=== PATIENT | female | born 1975 | race Caucasian/White ===

== ENCOUNTER → 2022-01-05 | Outpatient (CLI) | payer OTHER ==
[~2022-01-05] MED LIST: BENADRYL25 MG PO; TRAM50 PO
[2022-01-05 15:49] LABS: BASOPHILS ABSOLUTE AUTO 0.02 K/mm3 (0.00-0.23); BASOPHILS PERCENT AUTO 0 % (0-2); EOSINOPHILS ABSOLUTE AUTO 0.01 K/mm3 (0.00-0.68); EOSINOPHILS PERCENT AUTO 0 % (0-6); Hematocrit 19.2 % (33.0-51.0); IMMATURE GRAN ABSOLUTE AUTO 0.03 K/mm3 (0.00-0.10); IMMATURE GRAN PERCENT AUTO 0 % (0-1); LYMPHOCYTES ABSOLUTE AUTO 0.92 K/mm3 (0.84-5.20); LYMPHOCYTES PERCENT AUTO 12 % (21-46); MONOCYTES ABSOLUTE AUTO 0.48 K/mm3 (0.16-1.47); MONOCYTES PERCENT AUTO 6 % (4-13); Mean Corpuscular HGB 19.2 pg (26.0-34.0); Mean Corpuscular HGB Conc 26.6 g/dL (31.5-36.5); Mean Corpuscular Volume 72 fL (80-100); Mean Platelet Volume 8.9 fL (9.1-12.4); NEUTROPHILS ABSOLUTE AUTO 6.29 K/mm3 (1.96-9.15); NEUTROPHILS PERCENT AUTO 81 % (41-73); Platelet Count 502 K/mm3 (150-400); RDW Coefficient Variation 17.5 % (11.7-14.2); Red Blood Cell Count 2.66 M/mm3 (3.80-5.20); White Blood Cell Count 7.75 K/mm3 (4.00-11.30)
[2022-01-05 15:54] LABS: Albumin, Blood 3.5 g/dL (3.4-5.0); Bilirubin, Total 0.3 mg/dL (0.1-1.0); Bun/Creatinine Ratio 15.9 (12.0-20.0); Calcium, Blood 9.4 mg/dL (8.5-10.1); Creatinine, Blood 0.69 mg/dL (0.40-1.00); Globulin, Blood 3.5 g/dL (2.2-4.0)
[2022-01-05 16:19] LABS: Hemoglobin 5.1 g/dL (11.5-16.0)
== END | disposition home or self-care (01) ==
LOC: LAB 15:37 → LAB SHORT 15:37
PROVIDERS: Physician Assistant Surgical
DX: R10.11 Right upper quadrant pain (principal)
CPT/HCPCS: 80053; 83690; 85025

== ENCOUNTER 2024-05-30 16:41 | Observation (INO) | payer SELFPAY ==
[~2024-05-30] VITALS: Ht 177.8 cm; Wt 122.8 kg
[2024-05-30] MEDS ORDERED: NS 1,000 ML IV ONE (21:10)
[2024-05-31 00:04] LABS: Hematocrit 21.9 % (33.0-51.0)
[2024-05-31 00:49] LABS: Hematocrit 22.4 % (33.0-51.0); Hemoglobin 6.1 g/dL (11.5-16.0)
[2024-05-31 06:32] LABS: Hematocrit 23.4 % (33.0-51.0); Hemoglobin 6.7 g/dL (11.5-16.0)
[2024-05-31] MEDS ORDERED: FLU VACC TS2024-25(6MOS UP)/PF 45 MCG/0.5 ML SYRINGE IM SCH (09:10)
[2024-05-31] MEDS ORDERED: Sod Ferric Gluc Complx/Sucrose 125 MG in NS 100 ML IV SCH (09:30)
[2024-05-31] MEDS ORDERED: FAMO40 PO (11:22)
[2024-05-31 12:59] LABS: Hematocrit 28.9 % (33.0-51.0); Hemoglobin 8.1 g/dL (11.5-16.0)
[2024-05-31 15:20] VITALS: BP 147/100
--- NOTE | 2024-05-31 17:45 | NUR ---
SHIFT SUMMARY 1515 RECEIVED PT TO RM 326 VIA W/C FROM ER. PT SENT TO ER BY PCP FOR LOW Hgb. PT RECEIVED 2 UNITS PRBC'S IN ER. Hgb INCREASED TO 8.1. DR CAMP CONSULTED BY DR CARMEN. DR CAMP HERE TO SEE PT THIS AFTERNOON. PT TO HAVE UPPER AND LOWER SCOPE TOMORROW. GOLYTELY STARTED TONIGHT, PER ORDERS. PT OK TO HAVE ICE CHIPS AND WATER UNTIL 0600 AND THEN NPO. PT INFORMED AND VERBALIZED UNDERSTANDING. PT IS A&O AND VERY PLEASANT. UP INDEPENDENTLY IN RM AND TO [facility]. DENIES FURTHER NEEDS. CALL LT IN REACH.
[2024-05-31] MEDS ORDERED: Peg/Electrolytes 4,000 ML BTL PO ONE (18:00)
[2024-05-31 20:20] VITALS: BP 145/89
[2024-05-31 21:22] LABS: Stool Occult Blood Guaiac 1 Neg (Neg)
[2024-06-01] VITALS (7 sets, daily range): BP systolic 104–137; BP diastolic 70–86
--- NOTE | 2024-06-01 03:55 | NUR ---
A&0x 4. affect pleasant. Stool specimen sent to lab this shift. Hgb improved from previous s/p PRBC transfusion, Has completed Go Lytely bowel prep and stools now clear , Scheduled for Endoscopy tomorrow, Appeared to be resting well overnight . VS have remained stable. water/ice chips and bowel prep only,nothing else by mouth. pt compliant with plan of care.
[2024-06-01 06:11] LABS: BASOPHILS ABSOLUTE AUTO 0.03 K/mm3 (0.00-0.23); BASOPHILS PERCENT AUTO 1 % (0-2); EOSINOPHILS ABSOLUTE AUTO 0.13 K/mm3 (0.00-0.68); EOSINOPHILS PERCENT AUTO 2 % (0-6); Hematocrit 27.1 % (33.0-51.0); Hemoglobin 7.5 g/dL (11.5-16.0); IMMATURE GRAN ABSOLUTE AUTO 0.02 K/mm3 (0.00-0.10); IMMATURE GRAN PERCENT AUTO 0 % (0-1); LYMPHOCYTES ABSOLUTE AUTO 1.31 K/mm3 (0.84-5.20); LYMPHOCYTES PERCENT AUTO 22 % (21-46); MONOCYTES ABSOLUTE AUTO 0.59 K/mm3 (0.16-1.47); MONOCYTES PERCENT AUTO 10 % (4-13); Mean Corpuscular HGB 20.7 pg (26.0-34.0); Mean Corpuscular HGB Conc 27.7 g/dL (31.5-36.5); Mean Corpuscular Volume 75 fL (80-100); Mean Platelet Volume 8.7 fL (9.1-12.4); NEUTROPHILS ABSOLUTE AUTO 3.91 K/mm3 (1.96-9.15); NEUTROPHILS PERCENT AUTO 65 % (41-73); Platelet Count 408 K/mm3 (150-400); RDW Coefficient Variation 22.4 % (11.7-14.2); RDW Standard Deviation 59.8 fL (35.1-46.3); Red Blood Cell Count 3.62 M/mm3 (3.80-5.20); White Blood Cell Count 5.99 K/mm3 (4.00-11.30)
[2024-06-01 06:29] LABS: Calcium, Blood 8.1 mg/dL (8.5-10.1); Creatinine, Blood 0.6 mg/dL (0.40-1.00); Potassium, Blood 3.6 mmol/L (3.5-5.5)
[2024-06-01] MEDS ORDERED: propofoL 60 ML IV ONE (07:22)
[2024-06-01] MEDS ORDERED: Lactated Ringer's 1,000 ML IV SCH (07:40)
--- NOTE | 2024-06-01 08:37 | NUR ---
06/01/24 0837 Dayan Anthony MAC WITH [facility]; SEE ANESTHESIA RECORDS.
[2024-06-01] MEDS ORDERED: propofoL 40 ML IV ONE (08:39)
[2024-06-01] MEDS ORDERED: Famotidine 20 MG Tab PO SCH ×2 (09:00→21:00)
[2024-06-01] MEDS ORDERED: NS 250 ML IV PRN (09:55)
--- NOTE | 2024-06-01 11:59 | NUR ---
DISCHARGE PT AOX4, COOPERATIVE, ABLE TO MAKE NEEDS KNOWN. PT FINISHED IRON INFUSION, IV DC'D BY YANA. THIS RN WENT OVER DC PAPERWORK WITH PT, PT ACKNOWLEDGED. PT AMBULATED OUT OF HOSPITAL WITH INJURY.
== END 2024-06-01 11:58 | disposition home or self-care (01) ==
LOC: ER 16:41 → ERHOLD 16:42 → MEDS 16:42
PROVIDERS: Internal Medicine Gastroenterology; Student in an Organized Health Care Education/Training Program; ADMIT Family Medicine
PROC: 0DB68ZX Excision of Stomach, Via Natural or Artificial Opening Endoscopic, Diagnostic (ICD-10-PCS; principal; 2024-06-01 09:00)
PROC: 0DB98ZX Excision of Duodenum, Via Natural or Artificial Opening Endoscopic, Diagnostic (ICD-10-PCS; principal; 2024-06-01 09:00)
PROC: 0DBL8ZX Excision of Transverse Colon, Via Natural or Artificial Opening Endoscopic, Diagnostic (ICD-10-PCS; principal; 2024-06-01 09:00)
DX: D50.9 Iron deficiency anemia, unspecified (principal); K21.00 Gastro-esophageal reflux disease with esophagitis, without bleeding; D12.3 Benign neoplasm of transverse colon; K25.9 Gastric ulcer, unspecified as acute or chronic, without hemorrhage or perforation; K44.9 Diaphragmatic hernia without obstruction or gangrene; Q43.8 Other specified congenital malformations of intestine; D75.838 Other thrombocytosis; Z79.899 Other long term (current) drug therapy; Z97.5 Presence of (intrauterine) contraceptive device
CPT/HCPCS: 36415; 36430; 80048; 82272; 85014; 85018; 85025; 86850; 86900; 86901; 86923; 88305; 88342; 96365; 96366; 99285-25; A9270; G0378; J2704; J2916; J7030; J7050; J7120; P9016

== ENCOUNTER 2024-06-10 01:32 | Day surgery (SDC) | payer SELFPAY ==
[~2024-06-10 01:32] MED LIST changes: +FAMO40 PO; +Sod Ferric Gluc Complx/Sucrose 125 MG in NS 100 ML IV SCH
[2024-06-10 15:54] VITALS: BP 118/97
[2024-06-10] MEDS ORDERED: CYMBALTA20 M2 PO (15:56)
[2024-06-10] MEDS ORDERED: IRO IV (15:58)
== END 2024-06-10 16:55 | disposition home or self-care (01) ==
LOC: ATC 01:32
DX: D50.9 Iron deficiency anemia, unspecified (principal); K21.9 Gastro-esophageal reflux disease without esophagitis; D75.839 Thrombocytosis, unspecified; Z79.899 Other long term (current) drug therapy
CPT/HCPCS: 96365; J2916

== ENCOUNTER 2024-06-19 01:26 | Day surgery (SDC) | payer SELFPAY ==
[~2024-06-19 01:26] MED LIST changes: +CYMBALTA20 M2 PO; +IRO IV
[2024-06-19 08:35] VITALS: BP 145/81
== END 2024-06-19 09:42 | disposition home or self-care (01) ==
LOC: ATC 01:26
DX: D50.9 Iron deficiency anemia, unspecified (principal); K21.9 Gastro-esophageal reflux disease without esophagitis; Z79.899 Other long term (current) drug therapy
CPT/HCPCS: 96365; J2916

== ENCOUNTER 2024-06-24 09:30 | Day surgery (SDC) | payer SELFPAY ==
[2024-06-24 09:54] VITALS: BP 131/71
== END 2024-06-24 10:46 | disposition home or self-care (01) ==
LOC: ATC 09:30
DX: D50.9 Iron deficiency anemia, unspecified (principal); K21.9 Gastro-esophageal reflux disease without esophagitis; D69.6 Thrombocytopenia, unspecified; Z79.899 Other long term (current) drug therapy
CPT/HCPCS: 96365; J2916

== ENCOUNTER 2024-10-23 05:50 | Day surgery (SDC) | payer OTHER ==
[~2024-10-23] VITALS: Ht 175.3 cm; Wt 111.8 kg
[2024-10-23] VITALS (10 sets, daily range): BP systolic 114–146; BP diastolic 76–92
[~2024-10-23 05:50] MED LIST changes: -CYMBALTA20 M2 PO; +Cymbalta20 MG PO; -Sod Ferric Gluc Complx/Sucrose 125 MG in NS 100 ML IV SCH
--- NOTE | 2024-10-23 06:45 | NUR ---
AMBULATORY INTO SDS. PT DENIES PAIN OR ANXIETY. HISTORY AND ALLERGIES REVIEWED. VS WDL. LUNGS CLEAR. NO NOTED SOB. NPO STATUS CONFIRMED. PT PHONE, PURSE AND CONTACTS GIVEN TO HER SPOUSE CORNELIO.PT CLOTHING IN BELONGINGS BAG BELOW THE GURNEY.
[2024-10-23] MEDS ORDERED: Bupivacaine 0.5% HCl 5 MG/ML 30MLVIAL ONE (06:59)
[2024-10-23] MEDS ORDERED: FentaNYL Citrate 50 MCG/ML 2 ML Injection ONE (07:06)
[2024-10-23] MEDS ORDERED: Rocuronium Bromide 10 MG/ML 5ML Injection IV ONE ×3 (07:07→10:57)
[2024-10-23] MEDS ORDERED: Ropivacaine 0.5% HCL/PF 5 MG/ML 30ML Vial ONE (07:09)
[2024-10-23] MEDS ORDERED: Albuterol 2.5 MG/3 ML VIAL INH PRN (07:10)
[2024-10-23] MEDS ORDERED: Ondansetron HCl 2 MG / ML 2ML Vial IV PRN ×2 (07:15→11:25)
[2024-10-23] MEDS ORDERED: FentaNYL Citrate 50 MCG/ML 2 ML Injection IV PRN ×2 (07:15)
[2024-10-23] MEDS ORDERED: HYDROmorphone HCl/Pf 1MG SYR IV PRN ×2 (07:15→11:25)
[2024-10-23] MEDS ORDERED: Midazolam HCl 1MG / ML 2ML Vial ONE (07:23)
--- NOTE | 2024-10-23 07:28 | NUR ---
0728:JIMMY HOPPER AT BEDSIDE. TIME OUT DONE FOR BILATERAL ERECTOR SPINAE PLANE BLOCK. O2 @ 2 LITERS NASAL CANULA. VERSED GIVEN BY LULU HOPPER. DIRECTOR OF SAFETY. START @ 0730. END @ 0755. HR AND SPO2 MONITOR T/O PROCEDURE.
[2024-10-23] MEDS ORDERED: Lidocaine HCl 4% 5 ML SDA ONE (08:00)
[2024-10-23] MEDS ORDERED: Ondansetron HCl 2 MG / ML 2ML Vial ONE (08:16)
[2024-10-23] MEDS ORDERED: Dexamethasone Sod Phos 10 MG/ML 1ML VIAL ONE (08:16)
[2024-10-23] MEDS ORDERED: Sugammadex Sodium 200 MG/2ML SDV (100 MG/ML) ONE (08:17)
[2024-10-23] MEDS ORDERED: ePHEDrine Sulfate 50 MG/ML 1ML Injection ONE (09:15)
[2024-10-23] MEDS ORDERED: Phenylephrine HCl 100 MCG/ML-NS 10MLSYR (1MG/10ML) ONE (09:40)
[2024-10-23] MEDS ORDERED: Ketorolac Tromethamine 15mg Vial IV PRN (11:35)
--- NOTE | 2024-10-23 14:25 | NUR ---
POST-OP PATIENT TO ROOM 208 @1200. STAND PIVOTS TO BED. PATIENT IS AOX4, SBA. REPORTS SHOULDER PAIN, TORADOL GIVEN. LAP SITES ARE CLOSED WITH WOUND GLUE, C/D/I. SPOUSE UPDATED AND COMES TO ROOM. VSS. O2 TITRATED TO RA. PATIENT UP TO BATHROOM, VOIDS. TOLERATING CL PO INTAKE. DENIES N/V.
[2024-10-23] MEDS ORDERED: OXYC5 PO (16:40)
--- NOTE | 2024-10-23 17:39 | NUR ---
DISCHARGE PATIENT IS VOIDING, WALKING, AND TOLERATING PO INTAKE. IV TAKEN OUT INTACT.ALL INSTRUCTIONS READ AND SIGNED. PRESCRIPTION PICKED BY SPOUSE. FROM PHARMACY. VSS, PATIENT WALKS OUT WITH SPOUSE TO PRIVATE CAR.
[2024-10-24] MEDS ORDERED: Enoxaparin 40 MG/0.4 ML SYR SC SCH (09:00)
== END 2024-10-23 16:55 | disposition home or self-care (01) ==
LOC: ORSCMMR 05:50 → ORD 05:50 → ORSCMMR 05:52 → ORD 07:30 → SURS 11:52 → ORD 16:55
PROVIDERS: Surgery
PROC: 0BUT4JZ Supplement Diaphragm with Synthetic Substitute, Percutaneous Endoscopic Approach (ICD-10-PCS; principal; 2024-10-23 07:30)
PROC: 8E0W4CZ Robotic Assisted Procedure of Trunk Region, Percutaneous Endoscopic Approach (ICD-10-PCS; principal; 2024-10-23 07:30)
DX: K44.9 Diaphragmatic hernia without obstruction or gangrene (principal); D50.9 Iron deficiency anemia, unspecified; K21.00 Gastro-esophageal reflux disease with esophagitis, without bleeding; E66.9 Obesity, unspecified; Z68.36 Body mass index [BMI] 36.0-36.9, adult; Z79.899 Other long term (current) drug therapy
CPT/HCPCS: A9270; C1781; J1100; J1885; J2003; J2250; J2371; J2405; J2704; J2795; J3010; J7120